=== PATIENT | female | born 1950 ===

== ENCOUNTER 2019-05-30 07:22 | Day surgery (SDC) | payer OTHER | END 2019-05-30 11:10 | disposition home or self-care (01) | LOC: AMB-ENDOS 07:22 | DX: K57.32 Diverticulitis of large intestine without perforation or abscess without bleeding (principal); K57.30 Diverticulosis of large intestine without perforation or abscess without bleeding; K64.1 Second degree hemorrhoids ==

== ENCOUNTER 2023-04-11 06:11 | Day surgery (SDC) | payer OTHER ==
[~2023-04-11] VITALS: Ht 152.4 cm; Wt 99.8 kg
[~2023-04-11 06:11] MED LIST: AVAPRO300 MG PO; CRESTOR40 MG PO; ELIQUIS5 MG PO; NORVASC5 MG PO; TENORMIN25 MG PO
== END 2023-04-11 16:15 | disposition home or self-care (01) ==
LOC: CIR.AMB 06:11
PROVIDERS: ATTEND Colon & Rectal Surgery
DX: K60.3 Anal fistula (principal); K57.32 Diverticulitis of large intestine without perforation or abscess without bleeding; K92.1 Melena; I10 Essential (primary) hypertension; Z20.822 Contact with and (suspected) exposure to COVID-19; Z88.6 Allergy status to analgesic agent